=== PATIENT | female | born 1980 | race Caucasian/White ===

== ENCOUNTER 2018-07-13 13:27 | Observation (INO) ==
[2018-07-13 14:31] LABS: Bilirubin,Urine Negative (Negative); Blood,Urine Moderate (Negative); Clarity,Urine Clear (Clear); Color,Urine Yellow (Yellow); Glucose,Urine (UA) Normal (Normal); Ketones,Urine Negative (Negative); Leukocyte Esterase,Urine Small (Negative); Nitrite,Urine Negative (Negative); PH,Urine 5.5 pH Units (5.0-8.0); Protein,Urine Negative (Neg-Trace); Urobilinogen,Urine Normal (Normal)
[2018-07-13 14:33] LABS: Bacteria,Urine None Seen per hpf (None-Few); Hyaline Casts,Urine None Seen per lpf (None-Few); Squamous Epithelial Cell,Urine Many per lpf (None-Few)
[2018-07-13 15:10] LABS: Alanine Aminotransferase 11 Units/L (7-52); Albumin 3.9 g/dL (3.5-5.7); Albumin/Globulin Ratio 1.4 (1.1-2.2); Alkaline Phosphatase 44 Units/L (34-104); Amylase 28 Units/L (29-103); Aspartate Amino Transferase 12 Units/L (13-39); BUN/Creatinine Ratio 17 (6-26); Bilirubin,Indirect 0.2 mg/dL (0.0-1.2); Bilirubin,Total 0.2 mg/dL (0.3-1.0); Blood Urea Nitrogen 11 mg/dL (6-20); Calcium 8.9 mg/dL (8.6-10.3); Carbon Dioxide 26 mEq/L (23-29); Chloride 105 mEq/L (98-107); Globulin 2.7 g/dL (2.4-3.5); Glucose 118 mg/dL (70-105); Lipase 15 Units/L (11-82); Osmolality,Calculated 290 (280-300); Potassium 3.9 mEq/L (3.5-5.1); Sodium 140 mEq/L (136-145); Total Protein 6.6 g/dL (6.4-8.9); eGFR For Non-African Americans > 60 (> 60)
[2018-07-13 15:15] LABS: Basophils % 0.2 %; Eosinophils # 0.1 K/mcL (0.0-0.6); Eosinophils % 0.7 %; Hemoglobin 14.7 g/dL (11.5-15.4); Immature Granulocytes % 0.5 % (0-4); Lymphocytes # 1.9 K/mcL (0.6-4.6); Lymphocytes % 15.3 %; Mean Corpuscular HGB Conc 33.4 g/dL (31.6-35.5); Mean Corpuscular Volume 92.8 fL (83.0-100.0); Monocytes # 0.8 K/mcL (0.0-1.3); Monocytes % 6.5 %; Neutrophils # 9.4 K/mcL (1.6-8.9); Platelet Count 191 K/mcL (140-400); Red Blood Count 4.74 M/mcL (3.82-4.97); Red Cell Distribution Width 13.4 % (11.5-14.5); Segmented Neutrophils % 76.8 %
[2018-07-13] MEDS ORDERED: Dicyclomine 20 MG/2 ML AMPUL IM STA (15:24)
--- NOTE | 2018-07-13 15:39 | Emergency Department Note ---
Disposition Clinical Impression: Abdominal pain Qualifiers: Abdominal location: generalized Qualified Code(s): R10.84 - Generalized abdominal pain Disposition: Home, Self-Care Condition: Good Referrals: Concepción Bishop MD [Primary Care Provider] - Forms: ED Satisfaction Letter, Work/School Release Time of Disposition: 19:37 General Adult HPI - General Chief complaint: ED Abdominal Pain Stated complaint: ABD /Back Pain Time Seen by Provider: 07/13/18 14:46 Source: patient, family Limitations: no limitations - History of Present Illness Pain Scale: 10 - Related Data Allergies Allergy/AdvReac Type Severity Reaction Status Date / Time No Known Allergies Allergy Verified 07/13/18 14:03 Past Medical History - Past Medical History Medical history: Reports: no medical history Psychiatric history: Reports: no psych history - Social History Smoking Status: Current every day smoker Smokeless Tobacco Status: No Alcohol use: Reports: none Drug use: Reports: none Physical Exam - General Limitations: no limitations General appearance: alert, anxious Course Vital Signs Temperature 98.9 F 07/13/18 14:01 Pulse Rate 85 07/13/18 14:01 Respiratory Rate 18 07/13/18 14:01 Blood Pressure 119/80 07/13/18 14:01 O2 Sat by Pulse Oximetry 97 07/13/18 14:01 Temperature 98.9 F 07/13/18 15:07 Pulse Rate 76 07/13/18 15:07 Respiratory Rate 18 07/13/18 15:07 Blood Pressure 141/92 07/13/18 15:07 O2 Sat by Pulse Oximetry 97 07/13/18 15:07 Oxygen Delivery Oxygen Delivery Room Air Medical Decision Making - Lab Data Result diagrams: 07/13/18 14:29 07/13/18 14:29 Lab Results 07/13/18 07/13/18 07/13/18 Range/Units 13:55 13:55 14:29 WBC 12.2 H (4.3-11.1) K/mcL RBC 4.74 (3.82-4.97) M/mcL Hgb 14.7 (11.5-15.4) g/dL Hct 44.0 (35.3-44.9) % MCV 92.8 (83.0-100.0) fL MCH 31.0 (28.0-33.3) pg MCHC 33.4 (31.6-35.5) g/dL RDW 13.4 (11.5-14.5) % Plt Count 191 (140-400) K/mcL MPV 10.0 (9.4-12.4) fL Immature Gran % 0.5 (0-4) % Seg Neutrophils % 76.8 % Lymphocytes % 15.3 % Monocytes % 6.5 % Eosinophils % 0.7 % Basophils % 0.2 % Neutrophils # 9.4 H (1.6-8.9) K/mcL Lymphocytes # 1.9 (0.6-4.6) K/mcL Monocytes # 0.8 (0.0-1.3) K/mcL Eosinophils # 0.1 (0.0-0.6) K/mcL Basophils # 0.0 (0.0-0.2) K/mcL Sodium (136-145) mEq/L Potassium (3.5-5.1) mEq/L Chloride (98-107) mEq/L Carbon Dioxide (23-29) mEq/L BUN (6-20) mg/dL Creatinine (0.60-1.20) mg/dL Est GFR ( Amer) (> 60) Est GFR (Non-Af Amer) (> 60) BUN/Creatinine Ratio (6-26) Glucose (70-105) mg/dL Calculated Osmolality (280-300) Calcium (8.6-10.3) mg/dL Total Bilirubin (0.3-1.0) mg/dL Direct Bilirubin (0.0-0.2) mg/dL Indirect Bilirubin (0.0-1.2) mg/dL AST (13-39) Units/L ALT (7-52) Units/L Alkaline Phosphatase (34-104) Units/L Serum Total Protein (6.4-8.9) g/dL Albumin (3.5-5.7) g/dL Globulin (2.4-3.5) g/dL Albumin/Globulin Ratio (1.1-2.2) Amylase (29-103) Units/L Lipase (11-82) Units/L Urine Color Yellow (Yellow) Urine Clarity Clear (Clear) Urine pH 5.5 (5.0-8.0) pH Units Ur Specific [place] 1.020 (1.010-1.025) Urine Protein Negative (Neg-Trace) mg/dL Urine Glucose (UA) Normal (Normal) mg/dL Urine Ketones Negative (Negative) mg/dL Urine Blood Moderate H (Negative) Urine Nitrite Negative (Negative) Urine Bilirubin Negative (Negative) Urine Urobilinogen Normal (Normal) mg/dL Ur Leukocyte Esterase Small H (Negative) Urine Microscopic RBC 5-15 H (0-3) per hpf Urine Microscopic WBC 3-5 H (0-3) per hpf Ur Squamous Epith Cells Many H (None-Few) per lpf Urine Bacteria None Seen (None-Few) per hpf Hyaline Casts None Seen (None-Few) per lpf Ur Culture Indicated? YES A (NO) Urine Test Negative (Negative) 07/13/18 Range/Units 14:29 WBC (4.3-11.1) K/mcL RBC (3.82-4.97) M/mcL Hgb (11.5-15.4) g/dL Hct (35.3-44.9) % MCV (83.0-100.0) fL MCH (28.0-33.3) pg MCHC (31.6-35.5) g/dL RDW (11.5-14.5) % Plt Count (140-400) K/mcL MPV (9.4-12.4) fL Immature Gran % (0-4) % Seg Neutrophils % % Lymphocytes % % Monocytes % % Eosinophils % % Basophils % % Neutrophils # (1.6-8.9) K/mcL Lymphocytes # (0.6-4.6) K/mcL Monocytes # (0.0-1.3) K/mcL Eosinophils # (0.0-0.6) K/mcL Basophils # (0.0-0.2) K/mcL Sodium 140 (136-145) mEq/L Potassium 3.9 (3.5-5.1) mEq/L Chloride 105 (98-107) mEq/L Carbon Dioxide 26 (23-29) mEq/L BUN 11 (6-20) mg/dL Creatinine 0.65 (0.60-1.20) mg/dL Est GFR ( Amer) > 60 (> 60) Est GFR (Non-Af Amer) > 60 (> 60) BUN/Creatinine Ratio 17 (6-26) Glucose 118 H (70-105) mg/dL Calculated Osmolality 290 (280-300) Calcium 8.9 (8.6-10.3) mg/dL Total Bilirubin 0.2 L (0.3-1.0) mg/dL Direct Bilirubin 0.0 (0.0-0.2) mg/dL Indirect Bilirubin 0.2 (0.0-1.2) mg/dL AST 12 L (13-39) Units/L ALT 11 (7-52) Units/L Alkaline Phosphatase 44 (34-104) Units/L Serum Total Protein 6.6 (6.4-8.9) g/dL Albumin 3.9 (3.5-5.7) g/dL Globulin 2.7 (2.4-3.5) g/dL Albumin/Globulin Ratio 1.4 (1.1-2.2) Amylase 28 L (29-103) Units/L Lipase 15 (11-82) Units/L Urine Color (Yellow) Urine Clarity (Clear) Urine pH (5.0-8.0) pH Units Ur Specific [place] (1.010-1.025) Urine Protein (Neg-Trace) mg/dL Urine Glucose (UA) (Normal) mg/dL Urine Ketones (Negative) mg/dL Urine Blood (Negative) Urine Nitrite (Negative) Urine Bilirubin (Negative) Urine Urobilinogen (Normal) mg/dL Ur Leukocyte Esterase (Negative) Urine Microscopic RBC (0-3) per hpf Urine Microscopic WBC (0-3) per hpf Ur Squamous Epith Cells (None-Few) per lpf Urine Bacteria (None-Few) per hpf Hyaline Casts (None-Few) per lpf Ur Culture Indicated? (NO) Urine Test (Negative) Attestation Statement - Attestation Attestation: I examined this patient and my medical decision-making was reviewed with the Resident Physician. I agree with the documented findings, disposition and treatment plan as described except to the extent set forth below. Patient presents to the ED with a tick bite abdominal back pain. Onset several weeks ago. Patient is status post uterine ablation. There is apparently a blockage in her cervix which is causing a accumulation of menstruation within her uterus. She is having severe pain. She is been to [facility] twice and had CT scans that showed the same. Patient has surgery scheduled for July, but states she is in severe pain. On examination she appears uncomfort able and has a lot of lower abdominal tenderness with guarding. Plan. We will check ultrasound. Attempting to obtain records at this time. Ultrasound shows an engorged uterus. Discussed with RETAIL MARKETING MANAGER. Patient will go to the OR for D&C. Pelvis Ultrasound 07/13/18 15:23 IMPRESSION: Evaluation was limited. Patient could only tolerate the endovaginal study for partial exam. Neither ovary was visualized. Uterus is enlarged. Myometrium is uniform, but there is distended endometrium with uniform isoechoic material within, appearance suggesting blood. D/ / 07/13/2018 16:47:03 Adrienne Castro MD / natalie Interpreting Provider: Adrienne Castro MD
--- NOTE | 2018-07-13 16:16 | Emergency Department Note ---
Disposition Clinical Impression: Abdominal pain Qualifiers: Abdominal location: generalized Qualified Code(s): R10.84 - Generalized abdominal pain Disposition: Home, Self-Care Condition: Good Referrals: Concepción Bishop MD [Primary Care Provider] - Forms: ED Satisfaction Letter, Work/School Release Time of Disposition: 19:08 General Adult HPI - General Chief complaint: ED Abdominal Pain Stated complaint: ABD /Back Pain Time Seen by Provider: 07/13/18 14:46 Source: patient, family Mode of arrival: ambulatory Limitations: no limitations Nursing Notes Reviewed: Yes Vital Signs Reviewed: Yes - History of Present Illness HPI Narrative: 38-year-old female with no significant past medical history presenting to the emergency department chief complaint of lower abdominal pain. According to the patient proximally one year ago She had an ablation done and since then has been progressively having worse lower abdominal pain. She is followed up with her INTERNET E COMMERCE SPECIALIST who completed the surgery at an outside facility and they stated they need to perform a cervical dilation and D&C. This is scheduled for August 01. Patient is still having significant pain. Patient was seen at an outside facili ty multiple times in a CT of abdomen and pelvis along with basic laboratory analysis and discharged home with Percocet and Vicodin. Patient continues to have pain and can barely perform any of her daily activities due to the pain. Patient denies any other symptoms at home including fever, chest pain or shortness of breath. Pain Scale: 10 - Related Data Allergies Allergy/AdvReac Type Severity Reaction Status Date / Time No Known Allergies Allergy Verified 07/13/18 14:03 All systems ED: reviewed and negative except as stated. Constitutional: Denies: fever Eyes: Reports: as per HPI ENT ED: Reports: as per HPI Cardiovascular: Denies: chest pain Respiratory: Denies: dyspnea Gastrointestinal: Reports: abdominal pain Genitourinary: Reports: as per HPI Musculoskeletal: Reports: as per HPI Integumentary: Reports: as per HPI Neurological: Reports: as per HPI Psychiatric: Reports: as per HPI Endocrine: Reports: as per HPI Hematological/Lymphatic: Reports: as per HPI Allergic/Immunologic: Reports: as per HPI Past Medical History - Past Medical History Attestation: Yes The following information was validated with the patient. Medical history: Reports: no medical history Psychiatric history: Reports: no psych history - Social History Smoking Status: Current every day smoker Smokeless Tobacco Status: No Alcohol use: Reports: none Drug use: Reports: none Physical Exam - General Limitations: no limitations General appearance: alert, anxious - Head Head exam: atraumatic, normocephalic, normal inspection - Eye Eye exam: Absent: scleral icterus - ENT ENT exam: mucous membranes moist - Neck Neck exam: Present: full ROM - Chest Chest inspection: Present: symmetric chest wall rise - Respiratory Respiratory exam: Present: normal lung sounds bilaterally. Absent: respiratory distress, wheezes - Cardiovascular Cardiovascular exam: Present: regular rate, normal rhythm, normal heart sounds - Abdominal Exam Abdominal exam: Present: soft, tenderness, rigidity. Absent: distention, guarding, rebound Abdominal tenderness: Present: severe (entire lower abdomen) - Extremities Exam Extremities exam: Present: full ROM - Neurological Exam Neurological exam: Present: alert, oriented X3 - Psychiatric Psychiatric exam: Present: anxious - Skin Skin exam: Present: warm Course Course Narrative: 38-year-old female presenting for lower abdominal pain. Patient had CT at an outside facility. We were able to obtain those records and is described as cysts in the left ovary and a moderate to large amount of fluid in the endometrial canal of the uterus. No other abnormalities. Patient states her pain has become too severe and needs further evaluation. She states her last ultrasound was a significant amount of time ago. In the room patient is alert and oriented 3 and hemodynamically stable. We will obtain a transvaginal ultrasound, basic labs, urine and urine test. Disposition pending. Patient agrees with this plan. - Reevaluation(s) Reevaluation #1: Patient's ultrasound read as blood in the endometrium. I consulted INTERNET E COMMERCE SPECIALIST linen room houseperson Dr. Miller who agreed to evaluate the patient at this time. Patient means alert and oriented 3 and hemodynamically stable. Reevaluation #2: OB going to take patient to OR. Please refer to their note for further evaluation and treatment. At this time will discharge the patient to the OR for further treatment. Patient remains alert and oriented 3 and hemodynamically stable. Patient agrees with this plan. Vital Signs Temperature 98.9 F 07/13/18 14:01 Pulse Rate 85 07/13/18 14:01 Respiratory Rate 18 07/13/18 14:01 Blood Pressure 119/80 07/13/18 14:01 O2 Sat by Pulse Oximetry 97 07/13/18 14:01 Temperature 98.9 F 07/13/18 15:07 Pulse Rate 76 07/13/18 15:07 Respiratory Rate 18 07/13/18 15:07 Blood Pressure 141/92 07/13/18 15:07 O2 Sat by Pulse Oximetry 97 07/13/18 15:07 Oxygen Delivery Oxygen Delivery Room Air Medical Decision Making - Lab Data Result diagrams: 07/13/18 14:29 07/13/18 14:29 Lab Results 07/13/18 07/13/18 07/13/18 Range/Units 13:55 13:55 14:29 WBC 12.2 H (4.3-11.1) K/mcL RBC 4.74 (3.82-4.97) M/mcL Hgb 14.7 (11.5-15.4) g/dL Hct 44.0 (35.3-44.9) % MCV 92.8 (83.0-100.0) fL MCH 31.0 (28.0-33.3) pg MCHC 33.4 (31.6-35.5) g/dL RDW 13.4 (11.5-14.5) % Plt Count 191 (140-400) K/mcL MPV 10.0 (9.4-12.4) fL Immature Gran % 0.5 (0-4) % Seg Neutrophils % 76.8 % Lymphocytes % 15.3 % Monocytes % 6.5 % Eosinophils % 0.7 % Basophils % 0.2 % Neutrophils # 9.4 H (1.6-8.9) K/mcL Lymphocytes # 1.9 (0.6-4.6) K/mcL Monocytes # 0.8 (0.0-1.3) K/mcL Eosinophils # 0.1 (0.0-0.6) K/mcL Basophils # 0.0 (0.0-0.2) K/mcL Sodium (136-145) mEq/L Potassium (3.5-5.1) mEq/L Chloride (98-107) mEq/L Carbon Dioxide (23-29) mEq/L BUN (6-20) mg/dL Creatinine (0.60-1.20) mg/dL Est GFR ( Amer) (> 60) Est GFR (Non-Af Amer) (> 60) BUN/Creatinine Ratio (6-26) Glucose (70-105) mg/dL Calculated Osmolality (280-300) Calcium (8.6-10.3) mg/dL Total Bilirubin (0.3-1.0) mg/dL Direct Bilirubin (0.0-0.2) mg/dL Indirect Bilirubin (0.0-1.2) mg/dL AST (13-39) Units/L ALT (7-52) Units/L Alkaline Phosphatase (34-104) Units/L Serum Total Protein (6.4-8.9) g/dL Albumin (3.5-5.7) g/dL Globulin (2.4-3.5) g/dL Albumin/Globulin Ratio (1.1-2.2) Amylase (29-103) Units/L Lipase (11-82) Units/L Urine Color Yellow (Yellow) Urine Clarity Clear (Clear) Urine pH 5.5 (5.0-8.0) pH Units Ur Specific [place] 1.020 (1.010-1.025) Urine Protein Negative (Neg-Trace) mg/dL Urine Glucose (UA) Normal (Normal) mg/dL Urine Ketones Negative (Negative) mg/dL Urine Blood Moderate H (Negative) Urine Nitrite Negative (Negative) Urine Bilirubin Negative (Negative) Urine Urobilinogen Normal (Normal) mg/dL Ur Leukocyte Esterase Small H (Negative) Urine Microscopic RBC 5-15 H (0-3) per hpf Urine Microscopic WBC 3-5 H (0-3) per hpf Ur Squamous Epith Cells Many H (None-Few) per lpf Urine Bacteria None Seen (None-Few) per hpf Hyaline Casts None Seen (None-Few) per lpf Ur Culture Indicated? YES A (NO) Urine Test Negative (Negative) 07/13/18 Range/Units 14:29 WBC (4.3-11.1) K/mcL RBC (3.82-4.97) M/mcL Hgb (11.5-15.4) g/dL Hct (35.3-44.9) % MCV (83.0-100.0) fL MCH (28.0-33.3) pg MCHC (31.6-35.5) g/dL RDW (11.5-14.5) % Plt Count (140-400) K/mcL MPV (9.4-12.4) fL Immature Gran % (0-4) % Seg Neutrophils % % Lymphocytes % % Monocytes % % Eosinophils % % Basophils % % Neutrophils # (1.6-8.9) K/mcL Lymphocytes # (0.6-4.6) K/mcL Monocytes # (0.0-1.3) K/mcL Eosinophils # (0.0-0.6) K/mcL Basophils # (0.0-0.2) K/mcL Sodium 140 (136-145) mEq/L Potassium 3.9 (3.5-5.1) mEq/L Chloride 105 (98-107) mEq/L Carbon Dioxide 26 (23-29) mEq/L BUN 11 (6-20) mg/dL Creatinine 0.65 (0.60-1.20) mg/dL Est GFR ( Amer) > 60 (> 60) Est GFR (Non-Af Amer) > 60 (> 60) BUN/Creatinine Ratio 17 (6-26) Glucose 118 H (70-105) mg/dL Calculated Osmolality 290 (280-300) Calcium 8.9 (8.6-10.3) mg/dL Total Bilirubin 0.2 L (0.3-1.0) mg/dL Direct Bilirubin 0.0 (0.0-0.2) mg/dL Indirect Bilirubin 0.2 (0.0-1.2) mg/dL AST 12 L (13-39) Units/L ALT 11 (7-52) Units/L Alkaline Phosphatase 44 (34-104) Units/L Serum Total Protein 6.6 (6.4-8.9) g/dL Albumin 3.9 (3.5-5.7) g/dL Globulin 2.7 (2.4-3.5) g/dL Albumin/Globulin Ratio 1.4 (1.1-2.2) Amylase 28 L (29-103) Units/L Lipase 15 (11-82) Units/L Urine Color (Yellow) Urine Clarity (Clear) Urine pH (5.0-8.0) pH Units Ur Specific [place] (1.010-1.025) Urine Protein (Neg-Trace) mg/dL Urine Glucose (UA) (Normal) mg/dL Urine Ketones (Negative) mg/dL Urine Blood (Negative) Urine Nitrite (Negative) Urine Bilirubin (Negative) Urine Urobilinogen (Normal) mg/dL Ur Leukocyte Esterase (Negative) Urine Microscopic RBC (0-3) per hpf Urine Microscopic WBC (0-3) per hpf Ur Squamous Epith Cells (None-Few) per lpf Urine Bacteria (None-Few) per hpf Hyaline Casts (None-Few) per lpf Ur Culture Indicated? (NO) Urine Test (Negative)
[2018-07-13] MEDS ORDERED: Ondansetron 4 MG/2 ML VIAL IVP ONE (17:09)
[2018-07-13] MEDS ORDERED: Ondansetron ODT 4 MG TAB.RAPDIS SL ONE (17:17)
[2018-07-13] MEDS ORDERED: *HR* FentaNYL (PF) 100 MCG/2 ML VIAL IM ONE (17:24)
--- NOTE | 2018-07-13 19:21 | OB/GYN History & Physical ---
Date of Encounter: 07/13/18 Time of Encounter: 19:10 Assessment and Plan (1) Hematometra Current visit: Yes Status: Acute Plan to proceed to the OR for dilation and curettage. Risks, benefits and alternatives discussed with patient and consent signed in the ED. She is amenable to blood transfusion if one were to be required. Plan for discharge following procedure. Opioid Counseling: The patient was counseled on the appropriate use of opioid medications. She was informed that opioids can be addictive. She was counseling against selling or inappropriately sharing or disposing of this medication. She verbalized understanding and accepted the prescription as written. (2) BMI 38.0-38.9,adult Current visit: Yes Status: Chronic History of Present Illness Chief complaint: Abdominal pain HPI: Ms. Dahl is a 38 year old who presents to the ED with severe abdominal pain refractory to oral medications. She states that she had a NovaSure endometrial ablation in December 2017 for a history of heavy menstrual bleeding. She states that about 3 months ago she noticed crampy abdominal pain that would respond to Motrin and Aleve. Her pain progressed to where she would have to take hydrocodone and Percocet. It is worsened to the point where it no longer responds to oral medications. She states the pain is constant and does not radiate. Her mica laminating machine feeder told her that this was due to hematometra and a stenotic cervix. She is currently boarded for hysteroscopy, dilation and curettage August 01. An ultrasound was ordered through the ED and showed an anteverted and anteflexed uterus measuring 11.5 x 5.3 x 7.1 cm with an endometrial stripe of 38 mm and filled with blood. No other gross pathology is noted in the pelvis. Her last oral intake was this morning before 0800. Her pain is currently controlled with IV medication in the ED and. She denies any current vaginal bleeding, abnormal vaginal discharge, vaginal odor, pruritus, dysuria, nausea, vomiting, chest pain, shortness of breath, fever, chills, changes in bowel habits, unintentional weight gain or weight loss or other complaints today. Past Med Surg Social Fam HX - Past Medical History Attestation: Yes The following information was validated with the patient. Source: patient Medical history: asthma (Seasonal) Psychiatric history: no psych history - Past Surgical History Surgical History: (x3: 1996, 2002, 2005), cholecystectomy (2002- laparoscopic), other (May 2017NovaSure endometrial ablation ) - Social History Smoking Status: Current every day smoker (1 PPD x 19yrs) Packs per day: 1 Smokeless Tobacco Status: No Alcohol use: none Drug use: none Current living situation: Home - Independent Activity Level: Independent ambulation Recent Out of Country Travel Within the Last 8 Weeks: No - Additional Family History Additional family history: No history of breast, uterine, ovarian or cervical cancer Obstetrical History - Pregnancies : 4 Para: 4 Term: 2 : 2 Ab's: 0 Livin - History/Complications History/Complications: 1996term, primary low transverse section due to occiput posterior presentation and presumed macrosomia, male, 7 lbs. 8 oz., no complications [id number] weeks gestational age, , female, 6 lbs. 6 oz., no complications 2002term, repeat low transverse section, male, presumed macrosomia with the head circumference at 18 cm, 8 lbs. 15 oz., no complications [id number] weeks gestational age, repeat low transverse section with bilateral tubal ligation, preeclampsia with severe features on magnesium sulfate, female, 6 lbs. 2 oz. 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 She denies a history of abnormal Pap smears however she states that she is HPV positive and believes she found out in 2006. She denies any cervical procedures or colposcopy. She denies any STI's. Her method of control is tubal ligation and her partner also had a vasectomy. Medications and Allergies Allergy/AdvReac Type Severity Reaction Status Date / Time No Known Allergies Allergy Verified 07/13/18 14:03 Review of System OB All systems PM: reviewed and no additional remarkable complaints except as stated (All other systems are negative outside of the history of present illness.) Exam - Vital Signs Vital signs: Initial Vital Signs Temp Pulse Resp BP Pulse Ox 98.9 F 85 18 119/80 97 07/13/18 14:01 07/13/18 14:01 07/13/18 14:01 07/13/18 14:01 07/13/18 14:01 - Constitutional Constitutional: well developed, well nourished, obese - HEENT HEENT: Normocephaly, Mucus Membranes Moist - Neck Neck exam: supple - Lungs Respiratory exam: CTAB - Cardiovascular Cardiovascular exam: RRR - Abdomen Abdomen: Present: bowel sounds normal (Protuberant) - Vulva Vulva: bilateral: normal - Vagina Vagina: Present: normal moisture (No blood, lesions or abnormal discharge). Absent: discharge - Cervix Cervix: Absent: lesion, discharge, friable - Uterus Uterus exam: Present: enlarged, tender (Mobile) - Adnexa Adnexa: bilateral: normal - Anus/Rectum Anus/Rectum: Present: normal perianal skin Results Result Diagrams: 07/13/18 14:29 07/13/18 14:29 Abnormal lab results WBC 12.2 K/mcL (4.3-11.1) H 07/13/18 14:29 9.4 K/mcL (1.6-8.9) H 07/13/18 14:29 Glucose 118 mg/dL (70-105) H 07/13/18 14:29 0.2 mg/dL (0.3-1.0) L 07/13/18 14:29 AST 12 Units/L (13-39) L 07/13/18 14:29 Amylase 28 Units/L (29-103) L 07/13/18 14:29 Moderate (Negative) H 07/13/18 13:55 Ur Leukocyte Esterase Small (Negative) H 07/13/18 13:55 5-15 per hpf (0-3) H 07/13/18 13:55 3-5 per hpf (0-3) H 07/13/18 13:55 Ur Squamous Epith Cells Many per lpf (None-Few) H 07/13/18 13:55 Ur Culture Indicated? YES (NO) A 07/13/18 13:55 All other labs normal. US - abdomen: report reviewed, image reviewed (Transabdominal images only as patient could not tolerate transvaginal probe) - VTE Reasons for not Prescribing Prophylaxis: Treatment not Indicated - Low risk for VTE Documentation of Mechanical Device: Intermittent pneumatic compression device Deep Vein Thrombosis/Pulmonary Embolism Present on Admission: No
--- NOTE | 2018-07-13 20:31 | Anesthesia Evaluation PreOp ---
Date of Encounter: 07/13/18 Time of Encounter: 20:29 - Past History Planned Operation: D&C Cardiac History: Denies any Significant Hx (D&C) Pulmonary History: Smoker (1ppd x 19yrs), Asthma (Seasonal) Other Medical History: Denies Any Significant HX Anesthesia History: No Prior Anesthetic Complications, Past Anesthesia (C- section x 3 [1996, 2002, 2005], [place], Uterine Ablation) Alcohol Use: none Drug use: none Medications and Allergies HYDROcodone/Acet 5/325 mg [[place] 5-325 mg] 1 tab PO Q4H PRN 2 Days #5 tab 07/13/18 [Rx] Ibuprofen [Motrin] 800 mg PO Q8HR PRN #20 tablet NS 07/13/18 [Rx] Allergy/AdvReac Type Severity Reaction Status Date / Time No Known Allergies Allergy Verified 07/13/18 14:03 - Meds/Allergy Pre-op Review Medications Reviewed: Yes Allergies Reviewed: Yes Beta Blockers on Current Med List: No Anesthesia Results - Labs 07/13/18 14:29 07/13/18 14:29 Impressions Pelvis Ultrasound 07/13/18 15:23 IMPRESSION: Evaluation was limited. Patient could only tolerate the endovaginal study for partial exam. Neither ovary was visualized. Uterus is enlarged. Myometrium is uniform, but there is distended endometrium with uniform isoechoic material within, appearance suggesting blood. D/ / 07/13/2018 16:47:03 Adrienne aCstro MD / [facility] Interpreting Provider: Adrienne Castro MD Laboratory Results Anesthesia Exam Vital Signs Temp Pulse Resp BP Pulse Ox 07/13/18 15:07 98.9 F 76 18 141/92 97 07/13/18 14:01 98.9 F 85 18 119/80 97 Intake and Output 07/13/18 07/13/18 07/13/18 07:59 15:59 23:59 Other: Weight 104.326 kg Patient Weight 07/13/18 23:59 Weight 104.326 kg Height: 5'5" Weight: 230# BMI = 38.3 NPO (# of Hours): 0800 - HEENT Pupil (Motor): Pupils equal, EOMI Mallampati: II Teeth: Normal (Fair-poor dentition) Oral Opening: Greater than 3 - AIRCRAFT ENGINE TECHNICIAN LOC: Oriented AIRCRAFT ENGINE TECHNICIAN Motor: Normal RUE, Normal LUE, Normal RLE, Normal LLE, Normal Face AIRCRAFT ENGINE TECHNICIAN Sensory: Normal: RUE, LUE, RLE, LLE, Face - Cardiac Rhythm: Regular Murmur: None - Pulmonary Breath Sounds: bilateral Clear Respiratory Effort: Symmetrical Anesthesia Assess/Plan ASA Score: 3 (Daily Smoker, Obesity/BMI = 38,) Level of consciousness: Cooperative, Oriented, Tranquil Monitoring Plan: Standard Monitors Recovery Plan: PACU Anes Supervising Prov Stmt: PT seen/evaluated, R&B Discussed, questions answered and consent obtained. Anupama Galdamez MD
[2018-07-13] MEDS ORDERED: Acetaminophen IV 1,000 MG/100 ML INFUS..BTL ONE (20:45)
[2018-07-13] MEDS ORDERED: *HR* FentaNYL (PF) 100 MCG/2 ML VIAL ONE ×2 (20:50→21:56)
[2018-07-13] MEDS ORDERED: Lidocaine -MPF 2% 2 ML VIAL ONE (20:50)
[2018-07-13] MEDS ORDERED: *HR* Midazolam HCl 2 MG/2 ML VIAL ONE (20:51)
[2018-07-13] MEDS ORDERED: *HR* Propofol 200 MG/20 ML VIAL IVP ONE (20:51)
[2018-07-13] MEDS ORDERED: Metoclopramide 10 MG/2 ML VIAL ONE (20:53)
[2018-07-13] MEDS ORDERED: Famotidine 20 MG/2 ML VIAL ONE (20:59)
[2018-07-13] MEDS ORDERED: Lidocaine/EPI 1:200k 1% PF 10 ML VIAL ONE (21:02)
[2018-07-13] MEDS ORDERED: Dexamethasone 4 MG/ML VIAL ONE (21:41)
[2018-07-13] MEDS ORDERED: Ondansetron 4 MG/2 ML VIAL ONE (21:41)
[2018-07-13] MEDS ORDERED: Ketorolac 30 MG/ML VIAL ONE (22:12)
--- NOTE | 2018-07-13 22:43 | OB/GYN Procedure Note ---
Suction D&C - Diagnosis Date of procedure: 07/13/18 Pre-op diagnosis: other (Hematometra) Post-op diagnosis: same - Procedure Procedure: suction D&C Surgeon: Candis Miller Was there an physical laboratory assistant present: No Anesthesia Type: General Estimated blood loss (cc): 30 Complications: none Fluids: crystalloid Amount in: 1,000 Specimen: other (endometrial curettings) Disposition: same day Narrative: Operation Performed Suction, Dilation and Curettage Indication for Surgery 38yo presented to the ED with 3 months of worsening abdominal and pelvic pain refractory to oral medication. She is approximately 1 year status post NovaSure endometrial ablation. Ultrasound revealed retained blood in the uterus with a 4 cm endometrial stripe. The patient was informed of the risks and benefits of suction dilation and curettage. Risks included but were not limited to bleeding, infection, injury to the vulva, vagina or cervix and uterine perforation. The patient expressed understanding of the risks involved. All questions were answered and the patient consented to the procedure. Preoperative Diagnosis 1. Hematometra Postoperative Diagnosis Same Surgeon Candis Miller D.O. Pull Socket Assembler(s) None Anesthesia General Estimated Blood Loss 30 mL Urine Output Moderate amount of clear yellow urine IV Fluids 1,000 mL crystalloid Findings 9.5cm anteverted uterus. Stenotic internal os. Complications None Specimens Endometrial Curettings Technique The patient was taken to the operating room where a timeout was performed to confirm correct patient and correct procedure. The patient was given general anesthesia. When this proved adequate, she was then positioned on the operating table in the dorsal lithotomy position with the leg supported using stirrups. All pressure points were padded and a warm blanket was placed to maintain control of core body temperature. The patient was then prepped and draped in the usual sterile fashion. A bimanual exam was performed and the uterus was found to be mobile. No adnexal masses palpable. A straight catheter was inserted into the bladder and a moderate amount of urine was obtained. A weighted speculum was then inserted into the vagina. The anterior lip of the cervix was visualized with a right angle retractor and 2.5 mL of 1% lidocaine with epinephrine was injected prior to being grasped with a Talbert tenaculum. The internal os was extremely stenotic. With ultrasound guidance, I was able to insert the smallest Senior dilator. The uterus sounded to 9.5 cm. The cervix was serially dilated with the Senior dilators up to size 20. A moderate amount of bright red and dark brown blood was returned. A size 8 suction curette was inserted and the vacuum allowed to build until reach the appropriate amount. Curet was rotated 360 degrees and withdrawn. For total passes occurred. Endometrial tissue was obtained and sent to Pathology for testing. Following the curetting good hemostasis was noted. The Talbert tenaculum was removed from the anterior lip of the cervix and the tenaculum sites were noted to be hemostatic. The weighted speculum was then removed from the vagina. At the end of the procedure, all needle sponge and instrument counts were noted to be correct 2. The patient tolerated the procedure well and was transferred to the recovery room in stable condition.
[2018-07-13] MEDS ORDERED: *HR* HYDROmorphone 2 MG TABLET PO ONE (23:04)
[2018-07-13] MEDS ORDERED: *HR* HYDROmorphone 2 MG TABLET ONE (23:04)
[2018-07-14 01:21] VITALS: BP 108/61
== END 2018-07-14 00:50 | disposition home or self-care (01) ==
LOC: EMEROOARM 13:27 → 1NENUOBS 13:27 → EMEROOARM 20:35 → 1NENUOBS 21:00
PROVIDERS: ADMIT Obstetrics & Gynecology; ATTEND Obstetrics & Gynecology